=== PATIENT | female | born 1985 | race Caucasian/White ===

== ENCOUNTER → 2017-09-18 | Outpatient (CLI) | payer OTHER ==
[2017-09-18 09:54] LABS: Basophils % (A) 0 %; Eosinophils # (A) 0.1 k/uL (0-0.7); Eosinophils % (A) 2 %; HCT 41.6 % (34.0-46.0); HGB 13.7 gm/dL (11.4-16.0); Lymphocytes # (A) 1.6 k/uL (1.0-4.8); Lymphocytes % (A) 29 %; MCH 26.8 pg (25.0-35.0); MCV 81.3 fL (80.0-100.0); Mean Platelet Volume 6.9; Monocytes # (A) 0.3 k/uL (0-1.0); Monocytes % (A) 4 %; Neutrophils # (A) 3.7 k/uL (1.3-7.7); Neutrophils % (A) 64 %; Platelet Count 243 k/uL (150-450); RBC 5.12 m/uL (3.80-5.40); WBC 5.7 k/uL (3.8-10.6)
== END | disposition home or self-care (01) ==
LOC: LABPAT 09:40
PROVIDERS: ATTEND Obstetrics & Gynecology
DX: Z01.812 Encounter for preprocedural laboratory examination (principal)
CPT/HCPCS: 36415; 85025

== ENCOUNTER 2017-09-25 06:33 | Day surgery (SDC) | payer OTHER ==
[2017-09-22 14:04] VITALS: BMI 27.4
--- NOTE | 2017-09-23 17:03 | P.HPOB ---
History of Present Illness H&P Date: 09/23/17 Chief Complaint: Family planning Gerri is a 32-year-old female who is completed her family planning and desires permanent sterilization. Risks/benefits/alternatives to laparoscopic tubal occlusion with Filshie clips was reviewed with the patient in detail and all questions were answered for her prior to proceeding to the operating room. These did include but were not limited to bleeding, infection, damage to bladder , bowel, vascular injuries or nerve damage. Past Medical History Past Medical History: No Reported History History of Any Multi-Drug Resistant Organisms: None Reported Past Surgical History: No Surgical Hx Reported Additional Past Surgical History / Comment(s): wisdom teeth Past Anesthesia/Blood Transfusion Reactions: No Reported Reaction Past Psychological History: No Psychological Hx Reported Smoking Status: Never smoker Past Alcohol Use History: Rare Past Drug Use History: None Reported - Past Family History Father Family Medical History: Coronary Artery Disease (CAD) Medications and Allergies Home Medications Medication Instructions Recorded Confirmed Type Loratadine [Claritin] 10 mg PO DAILY PRN 04/05/15 09/22/17 History Ibuprofen [Motrin] 600 mg PO Q6HR PRN #30 tab 06/23/15 09/22/17 Rx Allergies Allergy/AdvReac Type Severity Reaction Status Date / Time No Known Allergies Allergy Verified 09/22/17 13:58 Exam Osteopathic Statement: *. No significant issues noted on an osteopathic structural exam other than those noted in the History and Physical/Consult. - OBG Physical Exam Breast: both: normal (no masses) Abdomen: bowel sounds normal, no diffuse tenderness, no bruit present, no guarding noted, no hepatomegaly, no splenomegaly, no mass Vulva: both: normal Vagina: normal moisture, no discharge Cervix: no lesion, no discharge Uterus: normal size, normal contour Adnexa: both: normal Anus/Rectum: normal perianal skin, no rectal mass, no hemorrhoids, heme negative
[~2017-09-25 06:33] MED LIST: DEXAMETHASONE SOD PHOSPHATE 10 MG/ML 1 ML VIAL IV ONE; LIDOCAINE 1% 20 ML VIAL (10MG/ML) FOR IV START INTRADERMA PRN; MIDAZOLAM 2 MG/2 ML VIAL IV PRN; MORPHINE SULFATE 4 MG/ML SYRINGE IV PRN; ONDANSETRON 4 MG/2 ML VIAL IVP ONE; Pre Op ABX Message 1 EACH MISC MISCELLANE ONE; SCOPOLAMINE 1.5MG/72HR PATCH TRANSDERM ONE
[2017-09-25] MEDS ORDERED: LACTATED RINGERS 1,000 ML IV ONE (06:50)
[2017-09-25] MEDS ORDERED: fentaNYL (PF) 50 MCG/ML 2 ML AMP ONE (07:45)
[2017-09-25] MEDS ORDERED: KETOROLAC 30 MG/ML 1 ML VIAL ONE (07:45)
[2017-09-25] MEDS ORDERED: SUCCINYLCHOLINE CHLORIDE 100 MG/5 ML SYR IV ONE (07:45)
[2017-09-25] MEDS ORDERED: MIDAZOLAM 2 MG/2 ML VIAL ONE (07:45)
[2017-09-25] MEDS ORDERED: PROPOFOL 10 MG/ML 20 ML VIAL IV ONE (07:45)
[2017-09-25] MEDS ORDERED: LIDOCAINE 1% INJ 10MG/ML (20 ML MDV) ONE (07:45)
[2017-09-25] MEDS ORDERED: BUPIVACAINE (PF) 0.25% 30 ML VIAL SQ ONE (08:07)
--- NOTE | 2017-09-25 08:15 | P.OP ---
Date of Procedure: 09/25/17 Preoperative Diagnosis: Family planning Postoperative Diagnosis: Same Procedure(s) Performed: Laparoscopic tubal occlusion with Filshie clips Anesthesia: FADIA Surgeon: Blair Gustafson Estimated Blood Loss (ml): 5 IV fluids (ml): 400 Urine output (ml): 30 Pathology: none sent Condition: stable Disposition: same day Operative Findings: Normal female anatomy Description of Procedure: Patient was taken to the operating suite where a general anesthetic was found to be adequate. She was prepped and draped in the normal sterile fashion and placed in the dorsal lithotomy position. Initially a speculum was inserted into the vagina and the anterior lip of the cervix identified and grasped with an Allis clamp. Uterus then sounded to 8 cm and a manipulator was inserted without difficulty. Speculum and Allis clamp were then removed and red rubber cath was used to drain the bladder of urine. Once this was was accomplished gloves were changed and attention was turned to the abdominal portion procedure where 3 mL of quarter percent Marcaine was injected periumbilically. Through this injected anesthetic a 5 mm skin incision was made. Through this incision under direct visualization with an optical trocar and sleeve the camera was inserted. Once peritoneal placement was assured gas was allowed to fully insufflate the abdomen and patient was then placed in steep Trendelenburg position. A second 8 mm skin incision was then made 3 cm above the pubic symphysis in the midline and this incision had a 8 mm port and sleeve inserted again under direct visualization. Observations pelvis were then done uterus was elevated first the right fallopian tube than the left fallopian tube had a Filshie clip applied between 2 and 3 cm from uterine cornu. With no bleeding noted from the mesosalpinx instruments were removed and gas was allowed to expel from the abdomen. 5 deep breaths provided during this process. Once completed ports were removed and 4-0 Vicryl was used to close incision subcuticular. The remaining 7 mL of quarter percent quarter percent Marcaine was then injected around these incisions. Instruments removed from vagina. Sponge, lap, needle counts were all correct 2. Patient was then taken to the recovery room in stable and satisfactory condition. She will be discharged home when stable Plan - Discharge Summary New Discharge Prescriptions: New Ibuprofen [Motrin] 600 mg PO Q6HR PRN #30 tab PRN Reason: Pain No Action Loratadine [Claritin] 10 mg PO DAILY PRN PRN Reason: Allergy Symptoms Ibuprofen [Motrin] 600 mg PO Q6HR PRN #30 tab PRN Reason: Pain Discharge Medication List Loratadine [Claritin] 10 mg PO DAILY PRN 04/05/15 [History] Ibuprofen [Motrin] 600 mg PO Q6HR PRN #30 tab 06/23/15 [Rx] Ibuprofen [Motrin] 600 mg PO Q6HR PRN #30 tab 09/25/17 [Rx] Follow up Appointment(s)/Referral(s): Blair Gustafson DO [Doctor of Osteopathic Medicine] - 2 Weeks Activity/Diet/Wound Care/Special Instructions: Heavy lifting, limit stairs and driving, and pelvic rest for the next few days. If any high temperatures, heavy bleeding, or severe pain call my office
[2017-09-25] MEDS ORDERED: ACETAMINOPHEN IV (For NPO) 1,000 MG/100 ML VIAL IVPB ONE (08:31)
[2017-09-25] MEDS ORDERED: diphenhydrAMINE 50 MG/ML 1 ML VIAL IVP ONE (08:55)
[2017-09-25 08:59] VITALS: RESP 16; TEMP 97.3
[2017-09-25] MEDS ORDERED: PROMETHAZINE INJ 25 MG/ML 1 ML VIAL IVPB ONE (09:27)
[2017-09-25] MEDS: LACTATED RINGERS 1,000 ML IV SCH ×3 (09:30→10:05)
[2017-09-25 11:23] VITALS: BP 124/87; PULSE 79
== END 2017-09-25 11:40 | disposition home or self-care (01) ==
LOC: OR 06:33
PROVIDERS: ATTEND Obstetrics & Gynecology
DX: Z30.2 Encounter for sterilization (principal); Z82.49 Family history of ischemic heart disease and other diseases of the circulatory system
CPT/HCPCS: 81025; 58671; J2250; J1200; J1100; J2550; J2405; J2001; J3010; J1885; J0131; J0330; J2704

== ENCOUNTER → 2018-09-06 | Outpatient (CLI) | payer OTHER ==
--- NOTE | 2018-09-06 11:41 | US ---
EXAMINATION TYPE: US pelvic complete DATE OF EXAM: 09/06/2018 COMPARISON: US CLINICAL HISTORY: R10.2 pelvic pain. Pelvic pain x 2 months, Left > Right; , tubal clamping TECHNIQUE: Transabdominal sonographic images of the pelvis were acquired. Date of LMP: last week EXAM MEASUREMENTS: Uterus: 8.9 x 5.5 x 4.0 cm Endometrial Stripe: 0.6 cm Right Ovary: 2.3 x 2.8 x 1.4 cm Left Ovary: 3.0 x 2.5 x 2.1 cm 1. Uterus: Anteverted; small Nabothian Cyst in cervix = 0.7 x 0.6 x 0.7cm 2. Endometrium: thickness is wnl for one week LMP 3. Right Ovary: multifollicular with largest cyst = 1.1 x 1.6 x 1.0cm 4. Left Ovary: multiple small follicles Spectral, color and waveform Doppler imaging shows good arterial and venous flow within the ovaries ; there is no evidence for ovarian torsion. 5. Bilateral Adnexa: wnl 6. Posterior cul-de-sac: wnl IMPRESSION: 1. Multiple bilateral ovarian follicles. There is a 1.6 cm cyst on the right ovary.
== END | disposition home or self-care (01) ==
LOC: RADUSWWP 07:02
PROVIDERS: ATTEND Obstetrics & Gynecology
DX: N83.201 Unspecified ovarian cyst, right side (principal)
CPT/HCPCS: 76856